=== PATIENT | female | born 1985 | race American Indian/Alaskan Native ===

== ENCOUNTER 2018-09-12 07:35 | Day surgery (SDC) | payer BC ==
[2018-09-11 13:04] VITALS: BMI 35.1
[2018-09-12 08:36] VITALS: TEMP 98
[2018-09-12] MEDS ORDERED: Lactated Ringer's 500 ML IV ONE (09:09)
[2018-09-12] MEDS ORDERED: Propofol 10 mg/ml Inj (20 ML) ONE (09:13)
[2018-09-12] MEDS ORDERED: Lidocaine Hydrochloride 5 ML INJ ONE (09:14)
[2018-09-12] MEDS ORDERED: Lactated Ringer's 500 ML IV SCH (09:30)
[2018-09-12 09:56] VITALS: O2SAT 100
[2018-09-12 10:44] VITALS: BP 125/80; PULSE 70; RESP 20
== END 2018-09-12 10:30 | disposition home or self-care (01) ==
LOC: C.ENDO 07:35
PROVIDERS: ATTEND Internal Medicine Gastroenterology
DX: K21.9 Gastro-esophageal reflux disease without esophagitis (principal); K22.10 Ulcer of esophagus without bleeding; K20.9 Esophagitis, unspecified
CPT/HCPCS: 43239; 84703; 88305; J2704; J7120